=== PATIENT | male | born 1935 | race Caucasian/White ===

== ENCOUNTER 2020-12-14 11:57 | Inpatient (IN) ==
--- NOTE | 2020-12-14 12:28 | ERNOTE ---
Lower Extremity HPI - General Lower Extremities Pain: hip: left Time Seen by Provider: 12/14/20 12:15 Source: patient Exam Limitations: no limitations - Immun/Allergies/Home Medications Allergies/Adverse Reactions: Allergies Allergy/AdvReac Type Severity Reaction Status Date / Time No Known Allergies Allergy Unverified 12/14/20 12:05 Home Medications: HOME MEDICATIONS Lovastatin [Altoprev] 40 mg PO DAILY 12/14/20 [Last Taken Unknown] Omeprazole 40 mg PO DAILY 12/14/20 [Last Taken Unknown] - History of Present Illness Narrative: Patient is coming to the ER for left hip pain. Just prior to coming here the patient slipped on the ice and fell on his left hip. He denies any other injury, denies hitting his head. He has been unable to put any weight on the left hip, pain is minimal at rest, but severe with any movement. Occurred: just prior to arrival Location of Incident: home Method of Injury: Reports: fell Reason for Fall: Reports: slipped Loss of Consciousness: Reports: no loss of consciousness Modifying Factors - (Improves): Reports: rest Modifying Factors - (Worsens): Reports: movement Associated Symptoms: Reports: unable to bear weight Subsequent Symptoms: Denies: sensory loss, numbness Prior Treament: Denies: recently seen, similar symptoms before Review of Systems - Review of Systems Constitutional: Absent: recent illness ENT: Absent: nose congestion Respiratory: Absent: shortness of breath Cardiology: Absent: chest pain Gastrointestinal/Abdominal: Absent: nausea, abdominal pain Genitourinary: Present: no symptoms reported Musculoskeletal: Present: See HPI. Absent: back pain, neck pain Neurological: Absent: headache, weakness, numbness Medical History (Last Reviewed 12/14/20 @ 12:21 by Ira Monroe MD) Hx of carotid artery stenosis Hyperlipidemia Surgical History: Surgical History (Last Reviewed 12/14/20 @ 13:09 by Rosalinda Thomas RN) History of carotid angioplasty Physical Exam - Physical Exam General Appearance: Present: wd/wn, alert, no apparent distress Head Exam: Present: normal inspection, no evidence of injury Respiratory: Present: no respiratory distress, normal breath sounds, no accessory muscle use, chest nontender, lungs clear Cardiovascular/Chest: Present: regular rate, rhythm, no murmur Peripheral Pulses: N=norm/S=strong/W=weak/B=bound/A=absent: Dorsalis-pedis (R): Normal, Dorsalis-pedis (L): Normal Gastrointestinal/Abdominal: Present: nontender, nondistended, soft Back Exam: Present: no vertebral tenderness Extremity Exam: Present: normal inspection, normal except - - left leg shortended and rotated, bony tenderness - left lateral hip Neurological Exam: Present: alert, oriented, normal mood/affect Skin Exam: Present: normal color, warm/dry Progress - Results and Orders Patient's Lab Results:: I have reviewed the patient's lab results. - Vital Signs Patient's Vital Signs:: I have reviewed the patient's vital signs. Vital Signs: Vital Signs 12/14/20 11:58 Temperature 36.0 C Pulse Rate 80 Respiratory Rate 18 Blood Pressure 112/53 O2 Sat by Pulse Oximetry 96 - EKG EKG #1 EKG: NSR, RBBB, nonspecific ST T wave changes, LVH EKG read: Interp. by me - X-Ray X-Ray #1 X-Ray: hip - left intertrochanteric fracture Interpretation: Reviewed by me X-Ray #2 X-Ray: chest - chronic, no acute changes Interpretation: Reviewed by me - Progress/Reassessment Chief Complaint: Hip Pain/Injury Progress Note-Subjective: 12/14/20 13:03 discussed with Blayne Fisher, admit to medicine, surgery tomorrow 12/14/20 13:10 discussed diagnosis with patient 12/14/20 13:11 discussed with ke Cortes to admit t Departure Clinical Impression: Intertrochanteric fracture of left hip Qualifiers: Encounter type: initial encounter Fracture type: closed Fracture alignment: displaced Qualified Code(s): S72.142A - Displaced intertrochanteric fracture of left femur, initial encounter for closed fracture - Departure Disposition: Short Term Hospital Inpatient Condition: Stable
[2020-12-14] MEDS ORDERED: ACETAMINOPHEN 1,000 MG/100 ML BTL IV ONE (13:10)
[2020-12-14 13:37] LABS: Hematocrit 40.1 % (42.0-52.0); Mean Cell Volume 96.9 fl (78-100); Mean Corpuscular Hemoglobin 31.4 pg (27-31); Mean Corpuscular Hgb Conc 32.4 g/dl (32-36); Platelet Count 269 K/mm3 (150-450); Red Blood Count 4.14 M/mm3 (4.7-6.0); Red Cell Distribution Width 12.1 % (11.5-14.0); White Blood Count 12.6 K/mm3 (4.0-10.5)
[2020-12-14 13:39] LABS: Total Cells Counted 100
[2020-12-14 13:56] LABS: Atypical (Reactive) Lymph 4 % (0-2); Band 4 % (0-2.0); Lymphocyte 10 % (20-51); Monocyte 9 % (0-9); Neutrophil 73 % (42-75); Neutrophil # 9.2 K/mm3 (1.3-6.0)
[2020-12-14 13:57] LABS: Platelet Estimate Normal (NORMAL); RBC Morphology Normal (NORMAL)
[2020-12-14 13:59] LABS: Albumin * 3.4 gm/dl (3.4-5.0); Anion Gap 12.1 mmol/L (6.8-13.8); BUN/Creatinine Ratio 14.7 (9.0-21.6); Bilirubin, Total 0.3 mg/dL (0.0-1.1); Ca. Corrected For Albumin 9.5 mg/dL (8.4-10.2); Calcium * 9.3 mg/dL (7.9-10.9); Carbon Dioxide 27.5 mmol/L (24-32.6); Potassium 4.6 mmol/L (3.4-4.6); Total Protein 7.1 gm/dL (6.2-8.2)
[2020-12-14] MEDS ORDERED: ONDANSETRON HCL/PF 2 MG/ML VIAL IV PRN (15:19)
[2020-12-14] MEDS ORDERED: MORPHINE SULFATE 4 MG/ML SYRG IV PRN (15:19)
[2020-12-14] MEDS ORDERED: ACETAMINOPHEN 500 MG TABLET PO PRN (15:19)
--- NOTE | 2020-12-14 15:23 | CONS ---
[facility] - General Date of Service: 12/14/20 Narrative: Maurice reports he was outside when he slipped on ice landing on his left hip. He was unable to bear weight. He was brought in the emergency department evaluated by Dr. Monroe. He is found to have a displaced intertrochanteric left hip fracture. He is admitted to medicine at this time. He reports no other injuries. Source: patient - History of Present Illness Timing/Duration: 1-3 hours Allergies/Adverse Reactions: Allergies No Known Allergies Allergy (Unverified 12/14/20 12:05) Home Medications: Home Medications Medication Instructions Recorded Last Taken Lovastatin [Altoprev] 40 mg PO DAILY 12/14/20 Unknown Omeprazole 40 mg PO DAILY 12/14/20 Unknown Procedures CATARAC PHACOEMULS/ASPIR (06/22/10) INSERT LENS AT CATAR EXT (06/22/10) Physical Examination - Exam Narrative: Patient lying comfortably on the gurney at this time. He is accompanied by his . His left leg is externally rotated and shortened. He has local inguinal pain with palpation. He reports no knee pain or lower extremity pain. Pulses intact left lower extremity. Sensation intact light touch. X-rays reviewed show displaced intertrochanteric left hip fracture. Vital Signs: Vital Signs - Last Taken Temp 36.0 C 12/14/20 11:58 Pulse 83 12/14/20 15:02 Resp 18 12/14/20 15:02 BP 135/66 12/14/20 15:02 Pulse Ox 96 12/14/20 15:02 O2 Oxygen Delivery Method Room Air Constitutional: Present: Alert, Oriented x3, Cooperative, No distress - Results and Findings: Narrative: Surgical risk discussed with Maurice and his . Closed reduction with self alone medullary internal fixation planned pending medical evaluation. Consents obtained. Patient be n.p.o. at midnight tonight. Lab/Microbiology results last 24 hrs: Abnormal/Pending Laboratory Last 24 HRS 12/14/20 12/14/20 13:32 13:32 WBC 12.6 H RBC 4.14 L Hgb 13.0 L Hct 40.1 L MCH 31.4 H Band Neuts % (Manual) 4 H Lymphocytes % (Manual) 10 L Neutrophils # (Manual) 9.2 H Lymphocytes # (Manual) 1.3 L Monocytes # (Manual) 1.1 H Atypic/Reactive Lymphs 4 H Est GFR (Non-Af Amer) 53 L Random Glucose 132 H - Assessments/Findings (1) Intertrochanteric fracture of left hip Problem: Acute Qualifiers: Encounter type: initial encounter Fracture type: closed Fracture alignment: displaced Qualified Code(s): S72.142A - Displaced intertrochanteric fracture of left femur, initial encounter for closed fracture
--- NOTE | 2020-12-14 15:47 | HP ---
Chief Complaint - Chief Complaint Date of Service: 12/14/20 Time of Service: 14:24 Chief Complaint: Left hip pain History of Present Illness: 85-year-old male with a past medical history of hyperlipidemia, carotid artery stenosis status post angioplasty, femoralfemoral bypass graft thrombosis bilateral, presents from home status post fall. He slipped on ice and fell on his left hip. In the ER he was found to have hip x-ray that showed a comminuted, displaced intertrochanteric fracture of the left hip. Orthopedics was consulted and they would like to take him to the operating room tomorrow. Medical History (Last Reviewed 12/14/20 @ 16:40 by Billie Mckeon RN) Cataract Femoral-femoral bypass graft thrombosis, left Femoral-femoral bypass graft thrombosis, right Hx of carotid artery stenosis Hyperlipidemia Surgical History: Surgical History (Last Reviewed 12/14/20 @ 16:40 by Billie Mckeon RN) History of carotid angioplasty History of tonsillectomy Family History: Family History (Last Updated 12/14/20 @ 15:47 by Salima Chen MD) Other Family history non-contributory Social History: (Last Updated 12/14/20 @ 15:46 by Salima Chen MD) Tobacco: Smoking Status: Former smoker Review Of Systems (GEN) - Review of Systems Generalized/Overall Review: Absent: Fever Respiratory: Absent: Shortness of Breath Cardiac: Absent: Chest Pain Abdominal: Absent: Abdominal Pain Musculoskeletal: Present: Joint Pain - Left hip Misc: All systems neg except as marked Allergies/Adverse Reactions: Allergies Allergy/AdvReac Type Severity Reaction Status Date / Time No Known Allergies Allergy Unverified 12/14/20 16:42 Home Medications: HOME MEDICATIONS Lovastatin [Altoprev] 40 mg PO DAILY 12/14/20 [Last Taken Unknown] Multivit-Min/FA/Lycopen/Lutein [Centrum Silver Tablet] 1 ea PO DAILY 12/14/20 [Last Taken Unknown] Omeprazole 40 mg PO DAILY 12/14/20 [Last Taken Unknown] Umeclidinium [place] [Incruse Ellipta] 62.5 mcg IH DAILY 12/14/20 [Last Taken Unknown] Exam - Exam Vital Signs: Vital Signs - Last Taken Temp 36.0 C 12/14/20 11:58 Pulse 83 12/14/20 15:02 Resp 18 12/14/20 15:02 BP 135/66 12/14/20 15:02 Pulse Ox 96 12/14/20 15:02 Constitutional: Present: Alert, Cooperative, Well developed, Well nourished, No distress, Elderly ENT Exam: Present: hearing grossly normal, moist mucous membranes Eye Exam: bilateral eye: normal inspection, EOMI, right eye: PERRL - Anisocoria Neck: Present: non-tender, supple. Absent: lymphadenopathy (R), lymphadenopathy (L) Respiratory: Present: lungs clear, no respiratory distress, no accessory muscle use, No wheezing. Absent: crackles, rhonchi Cardiovascular/Chest: Present: normal peripheral pulses, regular rate, rhythm, no edema, no murmur Peripheral Pulses: dorsalis-pedis (R): 1+, dorsalis-pedis (L): 1+ Abdomen: Present: Normal bowel sounds, soft, nontender Extremity: Present: other - Left leg externally rotated. Absent: pedal edema Skin Exam: Present: normal color, warm/dry Neurologic: Present: alert, normal mood/affect Appearance: Present: appropriate appearance, appropriate insight Eye contact: Present: cooperative Thoughts: Present: normal mood /affect Diagnostic Studies: Abnormal Lab Results 12/14/20 12/14/20 Range/Units 13:32 13:32 WBC 12.6 H (4.0-10.5) K/mm3 RBC 4.14 L (4.7-6.0) M/mm3 Hgb 13.0 L (13.5-18.0) gm/dL Hct 40.1 L (42.0-52.0) % MCH 31.4 H (27-31) pg Band Neuts % (Manual) 4 H (0-2.0) % Lymphocytes % (Manual) 10 L (20-51) % Neutrophils # (Manual) 9.2 H (1.3-6.0) K/mm3 Lymphocytes # (Manual) 1.3 L (1.5-3.5) k/mm3 Monocytes # (Manual) 1.1 H (0.0-1.0) k/mm3 Atypic/Reactive Lymphs 4 H (0-2) % Est GFR (Non-Af Amer) 53 L (60-130) mL/min Random Glucose 132 H (70-110) mg/dL Laboratory Results WBC 12.6 K/mm3 (4.0-10.5) H 12/14/20 13:32 RBC 4.14 M/mm3 (4.7-6.0) L 12/14/20 13:32 Hgb 13.0 gm/dL (13.5-18.0) L 12/14/20 13:32 Hct 40.1 % (42.0-52.0) L 12/14/20 13:32 MCV 96.9 fl (78-100) 12/14/20 13:32 MCH 31.4 pg (27-31) H 12/14/20 13:32 MCHC 32.4 g/dl (32-36) 12/14/20 13:32 RDW 12.1 % (11.5-14.0) 12/14/20 13:32 Plt Count 269 K/mm3 (150-450) 12/14/20 13:32 MPV 10.0 fl (8-11.3) 12/14/20 13:32 Neutrophils % (Manual) 73 % (42-75) 12/14/20 13:32 Band Neuts % (Manual) 4 % (0-2.0) H 12/14/20 13:32 Lymphocytes % (Manual) 10 % (20-51) L 12/14/20 13:32 Monocytes % (Manual) 9 % (0-9) 12/14/20 13:32 Neutrophils # (Manual) 9.2 K/mm3 (1.3-6.0) H 12/14/20 13:32 Lymphocytes # (Manual) 1.3 k/mm3 (1.5-3.5) L 12/14/20 13:32 Monocytes # (Manual) 1.1 k/mm3 (0.0-1.0) H 12/14/20 13:32 Atypic/Reactive Lymphs 4 % (0-2) H 12/14/20 13:32 Platelet Estimate Normal (NORMAL) 12/14/20 13:32 RBC Morphology Normal (NORMAL) 12/14/20 13:32 Sodium 138 mmol/L (132-142) 12/14/20 13:32 Plasma Sodium 139 mmol/L (130-142) 12/14/20 13:32 Potassium 4.6 mmol/L (3.4-4.6) 12/14/20 13:32 Chloride 103 mmol/L (97-106) 12/14/20 13:32 Carbon Dioxide 27.5 mmol/L (24-32.6) 12/14/20 13:32 Anion Gap 12.1 mmol/L (6.8-13.8) 12/14/20 13:32 BUN 20 mg/dL (6-23) 12/14/20 13:32 Creatinine 1.36 mg/dL (0.4-1.4) 12/14/20 13:32 Est GFR (Non-Af Amer) 53 mL/min (60-130) L 12/14/20 13:32 BUN/Creatinine Ratio 14.7 (9.0-21.6) 12/14/20 13:32 Random Glucose 132 mg/dL (70-110) H 12/14/20 13:32 Calcium 9.3 mg/dL (7.9-10.9) 12/14/20 13:32 Calcium Adj for Albumin 9.5 mg/dL (8.4-10.2) 12/14/20 13:32 Total Bilirubin 0.3 mg/dL (0.0-1.1) 12/14/20 13:32 AST 26 U/L (0-48) 12/14/20 13:32 ALT 26 U/L (19-67) 12/14/20 13:32 Alkaline Phosphatase 122 U/L (50-170) 12/14/20 13:32 Total Protein 7.1 gm/dL (6.2-8.2) 12/14/20 13:32 Albumin 3.4 gm/dl (3.4-5.0) 12/14/20 13:32 SARS-CoV-2 (PCR) Not detected (NotDetected) 12/14/20 13:24 Assessment/Plan - Narrative Narrative: 85-year-old male with a past medical history of hyperlipidemia, carotid artery stenosis status post angioplasty, femoralfemoral bypass graft thrombosis bilateral, presents from home status post fall. He slipped on ice and fell on his left hip. In the ER he was found to have hip x-ray that showed a comminuted, displaced intertrochanteric fracture of the left hip. Orthopedics was consulted and they would like to take him to the operating room tomorrow. He denies chest pain, shortness of breath, palpitations or dizziness. He is medically cleared for surgery. Plan #1 orthopedics following #2 pain management and bowel regimen #3 n.p.o. after midnight #4 resume home medications for comorbidities #5 PT after surgery #6 CBC and CMP in the morning - Assessment/Plan (1) Intertrochanteric fracture of left hip Problem: Acute Qualifiers: Encounter type: initial encounter Fracture type: closed Fracture alignment: displaced Qualified Code(s): S72.142A - Displaced intertrochanteric fracture of left femur, initial encounter for closed fracture (2) Hyperlipidemia Problem: Chronic (3) Femoral-femoral bypass graft thrombosis, right Problem: Chronic Qualifiers: Encounter type: sequela Qualified Code(s): T82.868S - Thrombosis due to vascular prosthetic devices, implants and grafts, sequela (4) Femoral-femoral bypass graft thrombosis, left Problem: Chronic Qualifiers: Encounter type: sequela Qualified Code(s): T82.868S - Thrombosis due to vascular prosthetic devices, implants and grafts, sequela (5) COPD (chronic obstructive pulmonary disease) Problem: Chronic
[2020-12-14] MEDS: HYDROcodone/ACETAMINOPHEN 1 EACH TABLET PO PRN (19:07)
[2020-12-15] MEDS ORDERED: ceFAZolin SODIUM 1 GM VIAL IV PRN (06:00)
[2020-12-15 06:37] LABS: Hematocrit 35.8 % (42.0-52.0); Hemoglobin 11.5 gm/dL (13.5-18.0); Mean Cell Volume 99.4 fl (78-100); Mean Corpuscular Hemoglobin 31.9 pg (27-31); Mean Corpuscular Hgb Conc 32.1 g/dl (32-36); Mean Platelet Volume 10.2 fl (8-11.3); Neutrophil # 6.4 K/mm3 (1.3-6.0); Neutrophil % 67.8 % (42-75.0); Platelet Count 280 K/mm3 (150-450); Red Cell Distribution Width 12.2 % (11.5-14.0); White Blood Count 9.5 K/mm3 (4.0-10.5)
[2020-12-15 06:44] LABS: Albumin * 3.1 gm/dl (3.4-5.0); Anion Gap 10.8 mmol/L (6.8-13.8); BUN/Creatinine Ratio 15.3 (9.0-21.6); Bilirubin, Total 0.5 mg/dL (0.0-1.1); Ca. Corrected For Albumin 9.5 mg/dL (8.4-10.2); Calcium * 9.1 mg/dL (7.9-10.9); Carbon Dioxide 26.8 mmol/L (24-32.6); Potassium 4.6 mmol/L (3.4-4.6); Total Protein 6.8 gm/dL (6.2-8.2)
[2020-12-15] MEDS: HYDROcodone/ACETAMINOPHEN 1 EACH TABLET PO PRN ×2 (06:55→22:52)
[2020-12-15] MEDS: PANTOPRAZOLE SODIUM 40 MG TABLET.EC PO SCH (06:56)
[2020-12-15] MEDS: RINGER'S SOLUTION,LACTATED 1,000 ML IV PRN ×3 (08:24→18:41)
[2020-12-15] MEDS: TIOTROPIUM BROMIDE 5 CAP INHALER IH SCH (08:25)
[2020-12-15] MEDS: MULTIVIT-MIN/FA/LYCOPEN/LUTEIN 1 TAB TABLET PO SCH (08:28)
[2020-12-15] MEDS: SIMVASTATIN 20 MG TABLET PO SCH (08:28)
--- NOTE | 2020-12-15 09:21 | PN ---
Subjective - Date and Time Seen Date: 12/15/20 Time: 09:15 Subjective Narrative: He continues to have left hip pain but his pain is being controlled with narcotics. Objective - Review of Systems Generalized/Overall Review: Denies: Fever Respiratory: Denies: Shortness of Breath Cardiac: Denies: Chest Pain Abdominal: Denies: Abdominal Pain Musculoskeletal Complaints: Reports: Joint Pain - Left hip Misc: All systems neg except as marked - Vitals Vitals: Last Vital Signs Temp 37.2 C 12/15/20 06:21 Pulse 79 12/15/20 06:21 Resp 16 12/15/20 06:21 BP 117/58 12/15/20 06:21 Pulse Ox 94 12/15/20 06:21 - Abnormal Lab Findings Abnormal Lab Findings: Abnormal Lab Results 12/14/20 12/14/20 12/15/20 Range/Units 13:32 13:32 06:24 WBC 12.6 H (4.0-10.5) K/mm3 RBC 4.14 L 3.60 L (4.7-6.0) M/mm3 Hgb 13.0 L 11.5 L (13.5-18.0) gm/dL Hct 40.1 L 35.8 L (42.0-52.0) % MCH 31.4 H 31.9 H (27-31) pg Immature Gran % (Auto) 0.60 H (0.001-0.429) % Immature Gran # (Auto) 0.06 H (0.000-0.0310) K/mm3 Band Neuts % (Manual) 4 H (0-2.0) % Lymphocytes % 16.0 L (20-51) % Lymphocytes % (Manual) 10 L (20-51) % Monocytes % 13.7 H (0.0-9) % Neutrophils # 6.4 H (1.3-6.0) K/mm3 Neutrophils # (Manual) 9.2 H (1.3-6.0) K/mm3 Lymphocytes # (Manual) 1.3 L (1.5-3.5) k/mm3 Monocytes # 1.3 H (0.0-1.0) k/mm3 Monocytes # (Manual) 1.1 H (0.0-1.0) k/mm3 Atypic/Reactive Lymphs 4 H (0-2) % BUN (6-23) mg/dL Creatinine (0.4-1.4) mg/dL Est GFR (Non-Af Amer) 53 L (60-130) mL/min Random Glucose 132 H (70-110) mg/dL Albumin (3.4-5.0) gm/dl 12/15/ Range/Units 06:24 WBC (4.0-10.5) K/mm3 RBC (4.7-6.0) M/mm3 Hgb (13.5-18.0) gm/dL Hct (42.0-52.0) % MCH (27-31) pg Immature Gran % (Auto) (0.001-0.429) % Immature Gran # (Auto) (0.000-0.0310) K/mm3 Band Neuts % (Manual) (0-2.0) % Lymphocytes % (20-51) % Lymphocytes % (Manual) (20-51) % Monocytes % (0.0-9) % Neutrophils # (1.3-6.0) K/mm3 Neutrophils # (Manual) (1.3-6.0) K/mm3 Lymphocytes # (Manual) (1.5-3.5) k/mm3 Monocytes # (0.0-1.0) k/mm3 Monocytes # (Manual) (0.0-1.0) k/mm3 Atypic/Reactive Lymphs (0-2) % BUN 31 H D (6-23) mg/dL Creatinine 2.02 H D (0.4-1.4) mg/dL Est GFR (Non-Af Amer) 34 L D (60-130) mL/min Random Glucose 114 H (70-110) mg/dL Albumin 3.1 L (3.4-5.0) gm/dl - Exam Constitutional: Present: Alert, Cooperative, Well developed, Well nourished, No distress, Elderly ENT Exam: Present: hearing grossly normal, moist mucous membranes Neck: Present: non-tender, supple. Absent: lymphadenopathy (R), lymphadenopathy (L) Respiratory: Present: lungs clear, no respiratory distress, no accessory muscle use, No wheezing. Absent: crackles, rhonchi Cardiovascular/Chest: Present: normal peripheral pulses, regular rate, rhythm, no edema, no murmur Abdomen: Present: Normal bowel sounds, soft, nontender Extremity: Present: no pedal edema Skin Exam: Present: normal color, warm/dry Neurologic: Present: alert, normal mood/affect Appearance: Present: appropriate appearance, appropriate insight Eye contact: Present: cooperative Thoughts: Present: normal thought pattern, normal mood /affect Assessment/Plan Plan Narrative: 85-year-old male with a past medical history of hyperlipidemia, carotid artery stenosis status post angioplasty, femoralfemoral bypass graft thrombosis bilateral, presents from home status post fall. He slipped on ice and fell on his left hip. In the ER he was found to have hip x-ray that showed a comminuted, displaced intertrochanteric fracture of the left hip. Orthopedics was consulted and they would like to take him to the operating room tomorrow. His hemoglobin has dropped from 13 to 11.5. Creatinine bumped up from 1.36- 2.02. GFR dropped from 53 to 34. I believe these changes may be secondary to the decreased volume from the blood loss. He is currently on IV fluids. Repeat CMP in the morning. He is awaiting to go to the operating room later today. Plan #1 orthopedics following #2 pain management and bowel regimen #3 resume regular diet after the procedure #4 resume home medications for comorbidities #5.Postop PT #6 CBC and CMP in the morning - Problems/Diagnosis (1) Intertrochanteric fracture of left hip Problem: Acute Qualifiers: Encounter type: initial encounter Fracture type: closed Fracture alig nment: displaced Qualified Code(s): S72.142A - Displaced intertrochanteric fracture of left femur, initial encounter for closed fracture (2) Hyperlipidemia Problem: Chronic (3) Femoral-femoral bypass graft thrombosis, right Problem: Chronic Qualifiers: Encounter type: sequela Qualified Code(s): T82.868S - Thrombosis due to vascular prosthetic devices, implants and grafts, sequela (4) Femoral-femoral bypass graft thrombosis, left Problem: Chronic Qualifiers: Encounter type: sequela Qualified Code(s): T82.868S - Thrombosis due to vascular prosthetic devices, implants and grafts, sequela (5) COPD (chronic obstructive pulmonary disease) Problem: Chronic
--- NOTE | 2020-12-15 11:10 | ANES ---
Anesthesia Pre Procedure Eval Vitals/Labs: Last Vital Signs Temp 36.9 C 12/15/20 10:54 Pulse 87 12/15/20 10:54 Resp 16 12/15/20 10:54 BP 121/53 12/15/20 10:54 Pulse Ox 94 12/15/20 10:54 HOME MEDICATIONS Lovastatin [Altoprev] 40 mg PO DAILY 12/14/20 [Last Taken Unknown] Multivit-Min/FA/Lycopen/Lutein [Centrum Silver Tablet] 1 ea PO DAILY 12/14/20 [Last Taken Unknown] Omeprazole 40 mg PO DAILY 12/14/20 [Last Taken Unknown] Umeclidinium [place] [Incruse Ellipta] 62.5 mcg IH DAILY 12/14/20 [Last Taken Unknown] Allergies/Adverse Reactions: Allergies Allergy/AdvReac Type Severity Reaction Status Date / Time No Known Allergies Allergy Unverified 12/14/20 16:42 - Planned Procedure Planned Procedure: Hip Fracture Medication List Reviewed:: Yes Allergies Verified: Yes Medical History (Last Reviewed 12/15/20 @ 11:07 by Clarence Babcock CRNA) COPD (chronic obstructive pulmonary disease) Cataract Femoral-femoral bypass graft thrombosis, left Femoral-femoral bypass graft thrombosis, right Hx of carotid artery stenosis Hyperlipidemia Surgical History (Last Reviewed 12/15/20 @ 11:07 by Clarence Babcock CRNA) History of carotid angioplasty History of tonsillectomy Family History (Last Reviewed 12/15/20 @ 11:07 by Clarence Babcock CRNA) Mother Heart problem Other Family history non-contributory - Family Anesthesia History Family History:: no untoward family reactions to anesthesia, no familial bleeding tendencies, no family history of clotting disorders, no family history of premature - Airway/Neck/Teeth Teeth Condition: none Denture Type: Full upper, Full lower Neck Exam: limited range of motion Mallampatti Score: 3 Thyromental (T-M) distance: > 6 cm Mandibulo Hyoid distance: > 3 cm - Respiratory Respiratory History: COPD Respiratory Physical: lungs clear Smoking Status: Former smoker Sleep Apnea currently treated: No Sleep Apnea by current assessment: No - Cardiovascular Cardiac History: hypertension, hyperlipidemia Tolerate Activity: Poor Heart Sounds: S1 & S2, Regular, Murmur - PMI apex - Gastrointestinal NPO since: 2399 - Anesthesia Assessment and Plan ASA Class: PS, III Anesthesia Type Plan: Spinal - On ASA only.
[2020-12-15] MEDS ORDERED: BUPIVACAINE HCL/PF 10 ML VIAL ONE (14:49)
[2020-12-15] MEDS ORDERED: MIDAZOLAM HCL/PF 1 MG/ML VIAL ONE (14:49)
[2020-12-15] MEDS ORDERED: PROPOFOL VIAL IV ONE (14:49)
[2020-12-15] MEDS ORDERED: ceFAZolin SODIUM 1 GM VIAL ONE (15:12)
[2020-12-15] MEDS ORDERED: diphenhydrAMINE HCL 50 MG/ML VIAL IV PRN (16:40)
[2020-12-15] MEDS ORDERED: MAG HYDROX/ALUMINUM HYD/SIMETH 30 ML UDC PO PRN (16:40)
[2020-12-15] MEDS ORDERED: MAGNESIUM HYDROXIDE 30 ML UDC PO PRN (16:40)
[2020-12-15] MEDS ORDERED: ONDANSETRON HCL/PF 2 MG/ML VIAL IV PRN (16:40)
[2020-12-15] MEDS ORDERED: ZOLPIDEM TARTRATE 5 MG TABLET PO PRN (16:40)
--- NOTE | 2020-12-15 16:40 | OR ---
Operative Report - Dictated Report Narrative: Date: 12/15/2020 Surgeon: Rodney Lange M.D. Sales Support Representative: Roberto Paige PA-C (provided an essential set of skilled educated handset assisted with transfer, positioning, prepping, draping, placement of instruments, insertion of implants, irrigation, closure wounds, and placement of dressings all which could not be performed by the available surgical crew) Preoperative diagnosis: Closed comminuted left intertrochanteric femur fracture Postoperative diagnosis: Closed comminuted left intertrochanteric femur fracture Operations and procedures: 1. Closed reduction, cephalo-medullary fixation left intertrochanteric femur fracture 2. Intraoperative interpretation of radiographs Anesthesia: Spinal Specimens: None Estimated blood loss: 50 milliliters Retained implants: [employer] Trigen InterTAN 130 degree size 10 mm by 18 centimeter nail with 95 millimeter lag screw and 90 millimeter compression screw, with distal locking screw Complications: None Indications for procedure: Mr. Gould is an 85-year-old gentleman who injured the left leg after ground-leve l fall. They were admitted to the hospital after being evaluated in the emergency department. Once the medical provider felt that they were stable for surgical treatment, the risks and benefits alternatives were discussed. The risks of , blood clots, bleeding, infection, nerve/tendon/blood vessel injury, malunion, nonunion, failure of implants, painful implants, arthrosis, and need for additional procedures were discussed. The extremity was marked and consent was obtained on the floor. Procedure: After marking the operative extremity on the floor, the patient was taken to the operating room. A timeout was performed. IV antibiotics consisting of Ancef were administered. A spinal anesthetic was induced by anesthesia, and the patient was then placed onto a fracture table with a well-padded perineal post. The nonoperative leg was placed in a well-padded traction boot in slight extension without any traction with an SCD on the leg. The operative leg was placed in a well-padded traction boot. Longitudinal traction, internal rotation, and flexion were utilized in order to reduce the fracture. Preliminary images were attained utilizing C-arm in both the AP and lateral view s. This confirmed that we had obtained adequate visualization of the fracture as well as reduction. Next the hip was then prepped and draped in a standard sterile fashion. Next the guidewire was placed percutaneously proximal to the greater trochanter to galileo a starting point at the tip of the greater trochanter centered on the lateral view. This was passed down to the level below the lesser trochanter. A scalpel was utilized in order to dissect down to the greater trochanter in order to place the soft tissue protector down to bone. The entry drill was then placed down the proximal femur to the level of the lesser trochanter. The proper size nail was then selected and impacted into place. The outrigger was utilized in order to confirm the appropriate depth of the nail. Using the alignment device on the outrigger, an incision was made over the lateral femur. Sharp dissection was carried through the iliotibial band down to the proximal femur. The guidewire was placed into the femoral head in a center- center position on AP and lateral views. The tip-apex distance of less than 25 mm combined was obtained. Once we felt that we had placed a guidewire in the appropriate position, it was measured. Next the compression screw site was drilled through the lateral femoral cortex. This was then drilled down to the appropriate depth, again confirming that we are within the confines the bone. The derotational bar was then placed and the lag screw was drilled. The lag screw was then secured in place seating fully ensuring that we were within the confines of the bone. The compression screw was then inserted allowing for compression while releasing the traction on the leg. Using C-arm this was visualized to allow for compression across the fracture site. Once is felt that we had adequately stabilized the intertrochanteric fracture, the distal interlocking screw was placed in a dynamic position. It was confirmed to be the appropriate length and within the nail on both AP and lateral views. The nail was secured allowing for controlled compression and the outrigger was removed. The wounds were then thoroughly irrigated. Final images were obtained. The hip was placed through range of motion and showed no crepitance. The deep fascia was closed with 0 Vicryl, the subcutaneous tissue with 3-0 Vicryl, and the skin was closed with sanket. Sterile dressings of Xeroform, 4 x 4, and tape were applied. All sponge, sharp, and instrument counts were correct prior to closing the wounds. The patient was then awoken and transferred to the postanesthesia care unit in stable condition.
--- NOTE | 2020-12-15 16:59 | ANES ---
Post Anesthesia Discharge - Transfer of Care Transfer of Care handoff given to nurse: Yes - Discharge from PACU Discharge from PACU when meets criteria: Yes - Awake and comfortable.
--- NOTE | 2020-12-15 17:15 | ANES ---
Post Anesthesia Assessment - Vital Signs Vitals: Last Vital Signs Temp 37.1 C 12/15/20 16:55 Pulse 78 12/15/20 17:10 Resp 13 12/15/20 17:10 BP 131/53 12/15/20 17:10 Pulse Ox 95 12/15/20 17:10 Airway Patency: Normal - Mental Status Level Of Consciousness: Awake, Alert, Appropriate - Pain Level Pain Score: 0 - N/V Assessment Nausea/Vomiting Presence: None Dehydration:: No
[2020-12-15] MEDS: ceFAZolin SODIUM 1 GM in DEXTROSE 5 % IN WATER 100 ML IV SCH ×2 (18:42)
[2020-12-15] MEDS: SENNOSIDES/DOCUSATE SODIUM 1 TAB TABLET PO SCH (20:24)
[2020-12-16] MEDS: ceFAZolin SODIUM 1 GM in DEXTROSE 5 % IN WATER 100 ML IV SCH ×4 (01:21→06:40)
[2020-12-16] MEDS: HYDROcodone/ACETAMINOPHEN 1 EACH TABLET PO PRN ×2 (02:27→07:18)
[2020-12-16] MEDS: PANTOPRAZOLE SODIUM 40 MG TABLET.EC PO SCH (06:24)
[2020-12-16 06:25] LABS: Hematocrit 30.5 % (42.0-52.0); Hemoglobin 9.8 gm/dL (13.5-18.0); Mean Corpuscular Hemoglobin 32.1 pg (27-31); Mean Corpuscular Hgb Conc 32.1 g/dl (32-36); Platelet Count 240 K/mm3 (150-450); Red Blood Count 3.05 M/mm3 (4.7-6.0); Red Cell Distribution Width 12.4 % (11.5-14.0); White Blood Count 8.1 K/mm3 (4.0-10.5)
[2020-12-16 06:31] LABS: Anion Gap 7.8 mmol/L (6.8-13.8); BUN/Creatinine Ratio 15.4 (9.0-21.6); Calcium * 8.5 mg/dL (7.9-10.9); Carbon Dioxide 29.7 mmol/L (24-32.6); Estimated Creat Clear 27.9; Potassium 4.5 mmol/L (3.4-4.6)
[2020-12-16] MEDS: RIVAROXABAN 20 MG TABLET PO SCH (08:33)
[2020-12-16] MEDS: SIMVASTATIN 20 MG TABLET PO SCH (08:33)
[2020-12-16] MEDS: TIOTROPIUM BROMIDE 5 CAP INHALER IH SCH (08:33)
[2020-12-16] MEDS: MULTIVIT-MIN/FA/LYCOPEN/LUTEIN 1 TAB TABLET PO SCH (08:33)
--- NOTE | 2020-12-16 09:25 | PN ---
Subjective - Date and Time Seen Date: 12/16/20 Time: 08:31 Subjective Narrative: He states his left hip is sore. He is tolerating his diet. Denies chest pain, or abdominal pain. His shortness of breath is at baseline secondary to COPD. Objective - Review of Systems Generalized/Overall Review: Denies: Fever Respiratory: Denies: Shortness of Breath Cardiac: Denies: Chest Pain Abdominal: Denies: Abdominal Pain Musculoskeletal Complaints: Reports: Joint Pain - Left hip Misc: All systems neg except as marked - Vitals Vitals: Last Vital Signs Temp 36.7 C 12/16/20 06:19 Pulse 82 12/16/20 07:11 Resp 18 12/16/20 06:19 BP 119/61 12/16/20 07:11 Pulse Ox 99 12/16/20 07:11 - Abnormal Lab Findings Abnormal Lab Findings: Abnormal Lab Results 12/16/20 12/16/20 Range/Units 06:15 06:15 RBC 3.05 L (4.7-6.0) M/mm3 Hgb 9.8 L (13.5-18.0) gm/dL Hct 30.5 L (42.0-52.0) % MCH 32.1 H (27-31) pg BUN 24 H (6-23) mg/dL Creatinine 1.56 H D (0.4-1.4) mg/dL Est GFR (Non-Af Amer) 45 L D (60-130) mL/min Random Glucose 117 H (70-110) mg/dL - Exam Constitutional: Present: Alert, Cooperative, Well developed, Well nourished, No distress, Elderly ENT Exam: Present: hearing grossly normal Neck: Present: non-tender, supple. Absent: lymphadenopathy (R), lymphadenopathy (L) Respiratory: Present: lungs clear, no respiratory distress, no accessory muscle use, No wheezing. Absent: crackles, rhonchi Cardiovascular/Chest: Present: normal peripheral pulses, regular rate, rhythm, no edema, systolic murmur Abdomen: Present: Normal bowel sounds, soft, nontender Extremity: Present: no pedal edema Skin Exam: Present: normal color, warm/dry Neurologic: Present: alert, normal mood/affect Appearance: Present: appropriate appearance, appropriate insight Eye contact: Present: cooperative Thoughts: Present: normal mood /affect Cauti Physician Documentation - Urinary Catheter Management Coude Date of Insertion: 12/15/20 Time of Insertion: 13:40 Date of Removal: 12/16/20 Time of Removal: 07:30 Assessment/Plan Plan Narrative: 85-year-old male with a past medical history of hyperlipidemia, carotid artery stenosis status post angioplasty, femoralfemoral bypass graft thrombosis bilateral, presents from home status post fall. He slipped on ice and fell on his left hip. In the ER he was found to have hip x-ray that showed a comminuted, displaced intertrochanteric fracture of the left hip. Orthopedics was consulted and they would like to take him to the operating room tomorrow. His hemoglobin has dropped from 13 to 11.5. Creatinine bumped up from 1.36- 2.02. GFR dropped from 53 to 34. I believe these changes may be secondary to the decreased volume from the blood loss. He is currently on IV fluids. Repeat CMP shows improvement of GFR to 45 and creatinine to 1.56. He is status post closed reduction, cephalo-medullary fixation left intertrochanteric femur fracture on December 15, 2020. He is doing well today. Pain is well controlled. Plan #1 orthopedics following #2 pain management and bowel regimen #3 Continue regular diet after the procedure #4 Continue home medications for comorbidities #5 PT #6 Discharge planning - Problems/Diagnosis (1) Intertrochanteric fracture of left hip Problem: Acute Qualifiers: Encounter type: initial encounter Fracture type: closed Fracture alignment: displaced Qualified Code(s): S72.142A - Displaced intertrochanteric fracture of left femur, initial encounter for closed fracture (2) Hyperlipidemia Problem: Chronic (3) Femoral-femoral bypass graft thrombosis, right Problem: Chronic Qualifiers: Encounter type: sequela Qualified Code(s): T82.868S - Thrombosis due to vascular prosthetic devices, implants and grafts, sequela (4) Femoral-femoral bypass graft thrombosis, left Problem: Chronic Qualifiers: Encounter type: sequela Qualified Code(s): T82.868S - Thrombosis due to vascular prosthetic devices, implants and grafts, sequela (5) COPD (chronic obstructive pulmonary disease) Problem: Chronic (6) Decreased glomerular filtration rate (GFR) Problem: Acute
[2020-12-16] MEDS: ACETAMINOPHEN 500 MG TABLET PO PRN (12:29)
--- NOTE | 2020-12-16 16:00 | PN ---
Subjective - Date and Time Seen Date: 12/16/20 Time: 12:00 Subjective Narrative: Patient is awake alert sitting up in his chair upon presentation. He overall notes he is doing well his pain is well controlled at this time. He notes is been up and worked with therapy. He notes he is tolerating a p.o. diet. He notes his pain is well controlled at this time. Objective - Vitals Vitals: Last Vital Signs Temp 36.6 C 12/16/20 15:06 Pulse 75 12/16/20 15:06 Resp 20 12/16/20 15:06 BP 117/57 12/16/20 15:06 Pulse Ox 94 12/16/20 15:06 - Abnormal Lab Findings Abnormal Lab Findings: Abnormal Lab Results 12/16/20 12/16/20 Range/Units 06:15 06:15 RBC 3.05 L (4.7-6.0) M/mm3 Hgb 9.8 L (13.5-18.0) gm/dL Hct 30.5 L (42.0-52.0) % MCH 32.1 H (27-31) pg BUN 24 H (6-23) mg/dL Creatinine 1.56 H D (0.4-1.4) mg/dL Est GFR (Non-Af Amer) 45 L D (60-130) mL/min Random Glucose 117 H (70-110) mg/dL - Exam Constitutional: Present: Alert, Cooperative, No distress Respiratory: Present: no respiratory distress Extremity: Present: other - Left lower extremity-> sensation intact light touch, dressings clean/dry/intact, 5/5 plantar flexion dorsiflexion ankle, capillary refill brisk, diffuse tenderness mild about left hip Skin Exam: Present: normal color, warm/dry Appearance: Present: appropriate appearance Eye contact: Present: cooperative, good eye contact Thoughts: Present: normal thought pattern Cauti Physician Documentation - Urinary Catheter Management Coude Date of Insertion: 12/15/20 Time of Insertion: 13:40 Date of Removal: 12/16/20 Time of Removal: 07:30 Assessment/Plan Plan Narrative: -85-year-old postop day 1 status post cephalomedullary nailing of intertrochanteric femur fracture on the left -Weightbearing as tolerated assistive ice as needed -PT/OT progress as tolerated -P.o. diet as tolerated -Pain control with p.o. pain medication -DVT prophylaxis: Xarelto for 6 weeks -Chronic medical conditions per family medicine team -Disposition: Follow-up with orthopedic outpatient clinic in 2 to 3 weeks, continue PT/OT progress as tolerated - Problems/Diagnosis (1) Intertrochanteric fracture of left hip Problem: Acute Qualifiers: Encounter type: initial encounter Fracture type: closed Fracture alignment: displaced Qualified Code(s): S72.142A - Displaced intertrochanteric fracture of left femur, initial encounter for closed fracture
[2020-12-16] MEDS: SENNOSIDES/DOCUSATE SODIUM 1 TAB TABLET PO SCH (20:04)
[2020-12-17] MEDS: PANTOPRAZOLE SODIUM 40 MG TABLET.EC PO SCH (07:46)
[2020-12-17] MEDS: ACETAMINOPHEN 500 MG TABLET PO PRN (07:46)
--- NOTE | 2020-12-17 09:39 | DS ---
(1) Intertrochanteric fracture of left hip Problem: Acute Qualifiers: Encounter type: initial encounter Fracture type: closed Fracture alignment: displaced Qualified Code(s): S72.142A - Displaced intertrochanteric fracture of left femur, initial encounter for closed fracture (2) Hyperlipidemia Problem: Chronic (3) Femoral-femoral bypass graft thrombosis, right Problem: Chronic Qualifiers: Encounter type: sequela Qualified Code(s): T82.868S - Thrombosis due to vascular prosthetic devices, implants and grafts, sequela (4) Femoral-femoral bypass graft thrombosis, left Problem: Chronic Qualifiers: Encounter type: sequela Qualified Code(s): T82.868S - Thrombosis due to vascular prosthetic devices, implants and grafts, sequela (5) COPD (chronic obstructive pulmonary disease) Problem: Chronic (6) Decreased glomerular filtration rate (GFR) Problem: Acute Hospital Course: 85-year-old male with a past medical history of hyperlipidemia, carotid artery stenosis status post angioplasty, femoralfemoral bypass graft thrombosis bilateral, presents from home status post fall. He slipped on ice and fell on his left hip. In the ER he was found to have hip x-ray that showed a comminuted, displaced intertrochanteric fracture of the left hip. Orthopedics was consulted and they would like to take him to the operating room tomorrow. His hemoglobin has dropped from 13 to 11.5. Creatinine bumped up from 1.36- 2.02. GFR dropped from 53 to 34. I believe these changes may be secondary to the decreased volume from the blood loss. He is currently on IV fluids. Repeat CMP showed improvement of GFR to 45 and creatinine to 1.56. He is status post, cephalo-medullary fixation left intertrochanteric femur fracture on December 15, 2020. He is doing well today. Pain is well controlled with Tylenol. He had a bowel movement today. He is stable to be discharged home today. Maurice Gould is confined to the home due to a left hip fracture. The need for correction is for wound care, monitoring of healing. The need for physical therapy is for strengthening, endurance, gait/balance issues, range of motion, ADL teaching to be safe, mobility issues and surgery follow-up. The need for home health care skilled services is directly related to the time spent face to face with the person. Procedures Performed: see notes below List Procedures: cephalo-medullary fixation left intertrochanteric femur fracture on December 15, 2020 Results and Findings: Lab Pending Results 12/14/20 13:24: SARS-CoV-2 (PCR) Not detected 12/14/20 13:32: WBC 12.6 H, RBC 4.14 L, Hgb 13.0 L, Hct 40.1 L, MCV 96.9, MCH 31.4 H, MCHC 32.4, RDW 12.1, Plt Count 269, MPV 10.0, Neutrophils % (Manual) 73, Band Neuts % (Manual) 4 H, Lymphocytes % (Manual) 10 L, Monocytes % (Manual) 9, Neutrophils # (Manual) 9.2 H, Lymphocytes # (Manual) 1.3 L, Monocytes # (Manual) 1.1 H, Atypic/Reactive Lymphs 4 H, Platelet Estimate Normal, RBC Morphology N ormal 12/14/20 13:32: Sodium 138, Plasma Sodium 139, Potassium 4.6, Chloride 103, Carbon Dioxide 27.5, Anion Gap 12.1, BUN 20, Creatinine 1.36, Est GFR (Non-Af Amer) 53 L, BUN/Creatinine Ratio 14.7, Random Glucose 132 H, Calcium 9.3, Calcium Adj for Albumin 9.5, Total Bilirubin 0.3, AST 26, ALT 26, Alkaline Phosphatase 122, Total Protein 7.1, Albumin 3.4 12/15/20 06:24: WBC 9.5 D, RBC 3.60 L, Hgb 11.5 L, Hct 35.8 L, MCV 99.4, MCH 31.9 H, MCHC 32.1, RDW 12.2, Plt Count 280, MPV 10.2, Immature Gran % (Auto) 0.60 H, Immature Gran # (Auto) 0.06 H, Neutrophils % 67.8, Lymphocytes % 16.0 L, Monocytes % 13.7 H, Eosinophils % 1.1, Basophils % 0.8, Nucleated RBC % 0.0, Neutrophils # 6.4 H, Lymphocytes # 1.52, Monocytes # 1.3 H, Eosinophils # 0.1, A bsolute Basophils 0.1 12/15/20 06:24: Sodium 137, Plasma Sodium 137, Potassium 4.6, Chloride 104, Carbon Dioxide 26.8, Anion Gap 10.8, BUN 31 H D, Creatinine 2.02 H D, Est GFR (Non-Af Amer) 34 L D, BUN/Creatinine Ratio 15.3, Random Glucose 114 H, Calcium 9.1, Calcium Adj for Albumin 9.5, Total Bilirubin 0.5, AST 22, ALT 24, Alkaline Phosphatase 109, Total Protein 6.8, Albumin 3.1 L 12/16/20 06:15: WBC 8.1, RBC 3.05 L, Hgb 9.8 L, Hct 30.5 L, MCV 100.0, MCH 32.1 H, MCHC 32.1, RDW 12.4, Plt Count 240, MPV 10.0 12/16/20 06:15: Sodium 136, Plasma Sodium 136, Potassium 4.5, Chloride 103, Carbon Dioxide 29.7, Anion Gap 7.8, BUN 24 H, Creatinine 1.56 H D, Est GFR (Non- Af Amer) 45 L D, BUN/Creatinine Ratio 15.4, Random Glucose 117 H, Calcium 8.5 Discharge Location: Home Disposition: Home self-skilled nursing Health Agency: [facility] Condition: Stable Discharge Activity: Activity as tolerated, Weight bearing - Left hip Discharge Diet: General/regular food Referrals: Clarence White MD [Primary Care Provider] - Additional Patient Instructions (free text): [facility] at discharge-PT. Fax demographics, H&P, discharge summary, and call report to [phone]. Follow up with at discharge. May establish care after the follow up visit if provider has openings or may choose other primary care provider. Prescriptions (Any new or edited meds): Rivaroxaban [Xarelto] 10 mg PO DAILY #40 tab Transmission Status: Pending to [facility] Complete Home Medications List: Complete Home Medication List: Lovastatin [Altoprev] 40 mg PO DAILY 12/14/20 Multivit-Min/FA/Lycopen/Lutein [Centrum Silver Tablet] 1 ea PO DAILY 12/14/20 Omeprazole 40 mg PO DAILY 12/14/20 Umeclidinium [place] [Incruse Ellipta] 62.5 mcg IH DAILY 12/14/20 Rivaroxaban [Xarelto] 10 mg PO DAILY #40 tab 12/17/20 Forms: Patient Portal Registration
[2020-12-17] MEDS: SIMVASTATIN 20 MG TABLET PO SCH (10:03)
[2020-12-17] MEDS: MULTIVIT-MIN/FA/LYCOPEN/LUTEIN 1 TAB TABLET PO SCH (10:03)
[2020-12-17] MEDS: RIVAROXABAN 20 MG TABLET PO SCH (10:03)
[2020-12-17] MEDS: TIOTROPIUM BROMIDE 5 CAP INHALER IH SCH (10:04)
--- NOTE | 2020-12-17 10:31 | PN ---
Progess Note - Interim Date: 12/17/20 Time: 10:29 Narrative: 12/17/20 10:29 -85-year-old postop day 2 status post cephalomedullary nailing of intertrochanteric femur fracture on the left -Patient is doing well, plan to discharge home with family, continue outpatient care with following plan. -Weightbearing as tolerated assistive ice as needed -PT/OT progress as tolerated -P.o. diet as tolerated -Pain control with p.o. pain medication -DVT prophylaxis: Xarelto for 6 weeks -Chronic medical conditions per family medicine team -Disposition: Follow-up with orthopedic outpatient clinic in 2 to 3 weeks, continue PT/OT progress as tolerated
[2020-12-17 12:58] VITALS: BP 108/53
== END 2020-12-17 13:22 | disposition home or self-care (01) | DRG 482 ==
LOC: ER 11:57 → MS 15:16
PROVIDERS: ADMIT Internal Medicine; ATTEND Internal Medicine